=== PATIENT | male | born 1995 | race Two or more races ===

== ENCOUNTER 2021-03-17 18:07 | Emergency (ER) | payer OTHER ==
[2021-03-17] MEDS ORDERED: CYCLOBENZAPRINE10 MG PO (19:09)
[2021-03-17] MEDS ORDERED: NAPROXEN500 MG PO (19:09)
== END 2021-03-17 19:43 | disposition home or self-care (01) ==
LOC: FER 18:07
DX: M54.6 Pain in thoracic spine (principal); G89.29 Other chronic pain; Z87.09 Personal history of other diseases of the respiratory system
CPT/HCPCS: 99283